=== PATIENT | female | born 1970 ===

== ENCOUNTER 2018-08-14 10:42 | Outpatient (CLI) | payer OTHER ==
[~2018-08-14] VITALS: Ht 152.4 cm; Wt 68.0 kg
== END 2018-08-14 14:26 | disposition home or self-care (01) ==
LOC: OFIC 805 10:42
DX: H90.41 Sensorineural hearing loss, unilateral, right ear, with unrestricted hearing on the contralateral side (principal); R42 Dizziness and giddiness; H93.11 Tinnitus, right ear; H61.23 Impacted cerumen, bilateral

== ENCOUNTER 2020-12-06 11:55 | Outpatient (CLI) | payer OTHER | END 2020-12-06 14:30 | disposition home or self-care (01) | LOC: OFIC 805 11:55 | PROVIDERS: ATTEND Otolaryngology Otology & Neurotology | DX: H81.01 Meniere's disease, right ear (principal); H93.11 Tinnitus, right ear ==